=== PATIENT | female | born 1940 | race Caucasian/White ===

== ENCOUNTER 2017-03-14 09:23 | Day surgery (SDC) | payer MEDICARE, MEDICAID ==
[2017-03-05 10:21] VITALS: BMI 30.2
[2017-03-14] MEDS ORDERED: ceFAZolin IV 1 gm in Dextrose 0 GM/0 ML BAG IVPB ONE (11:56)
[2017-03-14] MEDS ORDERED: Midazolam 2 MG/2 ML VIAL ONE (11:58)
[2017-03-14] MEDS ORDERED: Propofol 10 mg/ml Inj (20 ML) ONE (11:59)
[2017-03-14] MEDS ORDERED: Lactated Ringer's 1,000 ML IV ONE (12:00)
[2017-03-14] MEDS: Lidocaine 1% Inj (20ml) ONE ×2 (12:00→12:25)
[2017-03-14] MEDS: Bupivacaine/Epi 0.25%-1:200,000 10 ml PF inj IJ ONE ×2 (12:00→12:25)
[2017-03-14] MEDS ORDERED: ceFAZolin IV 2 gm in Dextrose 1 GM/50 ML BAG IVPB ONE (12:18)
--- NOTE | 2017-03-14 12:54 | PCM.SURG1 ---
Surgeon's Initial Post Op Note - Surgeon's Notes Surgeon: Dr. Astudillo Diesel Truck Technician: Dr. Sosa PGY-2, Dr. Guthrie PGY-1 Type of Anesthesia: IV Sedation, Local Pre-Operative Diagnosis: Portacath, pt finished with chemo Operative Findings: Portacath encased in capsule Post-Operative Diagnosis: Portacath, pt finished with chemo Operation Performed: Portacath removal Specimen/Specimens Removed: Portacath, capsule Estimated Blood Loss: EBL {In ML}: 10 Blood Products Given: N/A Drains Used: No Drains Post-Op Condition: Good Date of Surgery/Procedure: 03/14/17 Time of Surgery/Procedure: 12:54
--- NOTE | 2017-03-14 13:19 | OP ---
PROCEDURE DATE: 03/14/2017 PREOPERATIVE DIAGNOSIS: Rectosigmoid cancer. POSTOPERATIVE DIAGNOSIS: Rectosigmoid cancer. PROCEDURE DONE: Port-A-Cath removal. SURGEON: Devyn Astudillo MD CORDWOOD CUTTER: Amisha Sosa, PGY-2 resident ANESTHESIA: Local plus sedation. ESTIMATED BLOOD LOSS: Around 10 mL. DRAINS: None. PATHOLOGY: The Port-A-Cath with capsule was sent for the pathology. COMPLICATIONS: None. INTRAOPERATIVE FINDINGS: The patient had right IJ Port-A-Cath. OPERATION DONE: 1. Port-A-Cath removal. 2. Capsulectomy. INTRAOPERATIVE STEPS: This is a 76-year-old female who was diagnosed with rectosigmoid CA and after completion of the treatment, the patient needed the Port-A-Cath removed and the patient was consented for the Port-A-Cath removal, brought to the OR, placed supine on the operating table. After inducti on of the sedation, the right upper chest was prepped and draped. Local anesthesia was injected. In cision was made and Port-A-Cath was completely removed and capsule was also removed and it was sent t o the table for the pathology. Hemostasis was achieved. The wound was closed in 2 layers, the subcu taneous with 2-0 Vicryl in multiple layers and skin with 4-0 Monocryl. Dry sterile dressing was appl ied. The patient tolerated the procedure well. Count of instruments and gauze was correct. There w as no apparent complication. Devyn Astudillo MD cc: [id number] TT: 03/14/2017 13:18:55 en
[2017-03-14 16:09] VITALS: BP 148/56; PULSE 68; RESP 18; TEMP 96.1; O2SAT 99
== END 2017-03-14 16:10 | disposition home or self-care (01) ==
LOC: C.SDS 09:23
PROVIDERS: ATTEND Surgery Surgical Critical Care
DX: Z45.2 Encounter for adjustment and management of vascular access device (principal); C20 Malignant neoplasm of rectum
CPT/HCPCS: 36590; 82948; 88300; 88305; 88342; J0690; J1885; J2250; J2704; J3010; J7120

== ENCOUNTER 2017-10-13 08:58 | Emergency (ER) | payer MEDICARE, MEDICAID ==
[2017-10-13 08:59] VITALS: BMI 33.6
--- NOTE | 2017-10-13 09:43 | C.PDOC ---
History Of Present Illness VIA TRANS NEW ONSET ALVAREZ X 4 DAYS. INITIALLY 4 DAYS AGO, RESOLVED X 2 DAYS NOW RECUR TODAY. INITIALLY R SIDE, NOW L SIDE. CONSTANT. +NV NOW RESOLVED. DENIES OTHER ASSOC SX. USES CANE CHRONICALLY DUE TO HO CHRONIC B/L KNEE PAIN. 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) History/Exam Limitations: no limitations Onset/Duration Of Symptoms: Sudden Onset (New onset 4 days ago) Past Medical History Reviewed: Historical Data, Nursing Documentation, Vital Signs Vital Signs: Last Vital Signs Temp 98.4 F 10/13/17 12:23 Pulse 67 10/13/17 11:49 Resp 16 10/13/17 11:49 BP 165/72 H 10/13/17 11:49 Pulse Ox 100 10/13/17 13:16 - Medical History PMH: Colonic Polyps (Cancer), Diabetes, HTN, Hypercholesterolemia, Hypothyroidism, Malignancy (Colon with colostomy on chemo) Surgical History: Appendectomy - [facility] Procedures ENDOSCOPIC BIOPSY OF RECTUM (12/13/13) ESOPHAGOGASTRODUODENOSCOPY [EGD] W/CLOSED BIOPSY (08/04/13) OPEN AND OTHER SIGMOIDECTOMY (04/29/13) Family History: States: No Known Family Hx - Social History Hx Tobacco Use: No Hx Alcohol Use: No Hx Substance Use: No - Immunization History Hx Tetanus Toxoid Vaccination: No Hx Influenza Vaccination: No Hx Pneumococcal Vaccination: No Review Of Systems Except As Marked, All Systems Reviewed And Found Negative. Constitutional: Negative for: Fever Eyes: Negative for: Vision Change Cardiovascular: Negative for: Chest Pain Respiratory: Negative for: Shortness of Breath Neurological: Positive for: Headache Physical Exam - Physical Exam Appears: Non-toxic, In Acute Distress (Mild) Skin: Warm, Dry, No Rash Head: Atraumatic, Normacephalic Eye(s): bilateral: Normal Inspection, PERRL, EOMI, Other (No photophobia) Ear(s): Bilateral: Normal Oral Mucosa: Moist Neck: Normal, Normal ROM, Supple, Other (No meningismus) Cardiovascular: Rhythm Regular, No Murmur Respiratory: Normal Breath Sounds, No Rales, No Rhonchi, No Stridor, No Wheezing Extremity: Normal ROM, No Swelling Neurological/Psych: Oriented x3, Normal Speech Gait: With Assistance (Cane) ED Course And Treatment - Laboratory Results Result Diagrams: 10/13/17 10:02 10/13/17 10:02 ECG: Interpreted By Me, Viewed By Me ECG Rhythm: Sinus Rhythm ECG Interpretation: Normal Rate From EC (BPM) O2 Sat by Pulse Oximetry: 100 (RA) Pulse Ox Interpretation: Normal - Radiology CXR: Interpreted by Me CXR Interpretation: Yes: No Acute Disease - CT Scan/US CT - Head Other Rad Studies (CT/US): Read By Radiologist, Radiology Report Reviewed CT/US Interpretation: PROCEDURE: CT HEAD WITHOUT CONTRAST. HISTORY: Headache HO COLON CANCER. COMPARISON: None available. TECHNIQUE: Axial computed tomography images were obtained through the head/brain without intravenous contrast. Radiation dose: Total exam DLP = 786.53 mGy-cm. This CT exam was performed using one or more of the following dose reduction techniques: Automated exposure control, adjustment of the mA and/or kV according to patient size, and/or use of iterative reconstruction technique. FINDINGS: HEMORRHAGE: No intracranial hemorrhage. BRAIN: No mass effect or edema. Mild scattered white matter hypodensities, which are nonspecific, but often seen with chronic microvascular ischemic disease. Please note that MRI with diffusion imaging is more sensitive in the detection of acute ischemic event. VENTRICLES: No hydrocephalus. CALVARIUM: Unremarkable. PARANASAL SINUSES: Unremarkable as visualized. No significant inflammatory changes. MASTOID AIR CELLS: Unremarkable as visualized. No inflammatory changes. OTHER FINDINGS: None. IMPRESSION: No acute intracranial pathology identified. Please note if clinical concern for intracranial metastases, MRI without and with IV contrast is recommended. Progress - Re-Evaluation Re-evaluation Note: 10/13/17 13:00 d/w dr anna ortiz aware of er findings, unk current chemo drugs. OUTPT FU 10/13/17 13:06 D/W DR FUNG: +?R INFIL. 10/13/17 13:11 FAMILY @ BEDSIDE. PS LAST CHEMO 07/29 "I GET A SHOT AFTERWARDS". POSSIBLE GRANIX? ABX, ADVISED FU PMD. - Data Reviewed Data Reviewed: Lab, Diagnostic imaging, EKG, Old records Medical Decision Making Medical Decision Making: PLAN: * CT - Head * EKG * CBC * BMP * Tylenol PO * Zofran PO * Avelox PO Disposition Counseled Patient/Family Regarding: Studies Performed, Diagnosis, Need For Followup, Rx Given - Disposition Referrals: YOUR,PMD [Other] Disposition: HOME/ ROUTINE Disposition Time: 13:12 Condition: IMPROVED Additional Instructions: TAKE TYLENOL NEEDED FOR HEADACHE NEEDED Prescriptions: Moxifloxacin [Avelox] 400 mg PO DAILY #6 tab Instructions: Acute Headache (ED), Community Acquired Pneumonia (ED) Forms: [employer] (Croatian) Print Language: URDU - Clinical Impression Clinical Impression: Bandemia, Headache, Colorectal cancer, Abnormal chest xray - Scribe Statement The provider has reviewed the documentation as recorded by the Scribe Melony [place] Provider Attestation: All medical record entries made by the Scribe were at my direction and personally dictated by me. I have reviewed the chart and agree that the record accurately reflects my personal performance of the history, physical exam, medical decision making, and the department course for this patient. I have also personally directed, reviewed, and agree with the discharge instructions and disposition.
[2017-10-13 10:10] LABS: BASO % 0.3 % (0.0-2.0); EOS % 0.1 % (0.0-4.0); HEMATOCRIT 36.4 % (34.0-47.0); LYMPH # 0.9 K/uL (1.0-4.3); LYMPH % 7.9 % (20.0-40.0); MEAN CELL VOLUME 89.8 fL (81.0-99.0); MEAN CORPUSCULAR HEMOGLOBIN 29.4 pg (27.0-31.0); MEAN CORPUSCULAR HGB CONC 32.7 g/dL (33.0-37.0); MEAN PLATELET VOLUME 8.1 fL (7.2-11.7); MONO # 0.3 K/uL (0.0-0.8); MONO % 2.3 % (0.0-10.0); PLATELET COUNT 200 K/uL (130-400); RED CELL DISTRIBUTION WIDTH 14.9 % (11.5-14.5)
[2017-10-13 10:11] LABS: WHITE BLOOD COUNT 12.1 K/uL (4.8-10.8)
[2017-10-13 10:31] LABS: CALCIUM 8.4 mg/dl (8.6-10.4)
[2017-10-13 10:39] LABS: NEUTROPHIL 83 % (50-75); TOTAL CELLS COUNTED 100
[2017-10-13 10:45] LABS: POTASSIUM 5.1 mmol/L (3.6-5.2)
--- NOTE | 2017-10-13 10:46 | CT ---
PROCEDURE: CT HEAD WITHOUT CONTRAST. HISTORY: Headache HO COLON CANCER COMPARISON: None available. TECHNIQUE: Axial computed tomography images were obtained through the head/brain without intravenous contrast. Radiation dose: Total exam DLP = 786.53 mGy-cm. This CT exam was performed using one or more of the following dose reduction techniques: Automated exposure control, adjustment of the mA and/or kV according to patient size, and/or use of iterative reconstruction technique. FINDINGS: HEMORRHAGE: No intracranial hemorrhage. BRAIN: No mass effect or edema. Mild scattered white matter hypodensities, which are nonspecific, but often seen with chronic microvascular ischemic disease. Please note that MRI with diffusion imaging is more sensitive in the detection of acute ischemic event. VENTRICLES: No hydrocephalus. CALVARIUM: Unremarkable. PARANASAL SINUSES: Unremarkable as visualized. No significant inflammatory changes. MASTOID AIR CELLS: Unremarkable as visualized. No inflammatory changes. OTHER FINDINGS: None. IMPRESSION: No acute intracranial pathology identified. Please note if clinical concern for intracranial metastases, MRI without and with IV contrast is recommended.
[2017-10-13 10:54] VITALS: RESP 16
[2017-10-13 12:24] LABS: VENOUS BLOOD GAS PCO2 54 mmHg (40-60); VENOUS BLOOD PH 7.31 (7.32-7.43)
[2017-10-13 12:30] LABS: URINE BILIRUBIN NEGATIVE (NEGATIVE); URINE BLOOD 1+ (NEGATIVE); URINE COLOR Straw (YELLOW); URINE GLUCOSE (UA) 2+ mg/dL (Normal); URINE KETONE NEGATIVE (NEGATIVE); URINE LEUKOCYTE ESTERASE 1+ Leu/uL (Negative); URINE PROTEIN NEGATIVE (NEGATIVE); URINE UROBILINOGEN NORMAL mg/dL (0.2-1.0); WBC URINE < 1 /hpf (0-5)
--- NOTE | 2017-10-13 13:05 | RAD ---
HISTORY: ABN WBC RO PNEUMONIA COMPARISON: Chest x-ray performed 03/05/17 TECHNIQUE: Chest PA and lateral FINDINGS: LUNGS: Minimal patchy opacity in the right middle lobe may reflect pneumonia. Please note that chest x-ray has limited sensitivity for the detection of pulmonary masses. PLEURA: No significant pleural effusion identified. No definite pneumothorax . CARDIOVASCULAR: Cardiomegaly. OSSEOUS STRUCTURES: No acute osseous abnormality identified. VISUALIZED UPPER ABDOMEN: Unremarkable. OTHER FINDINGS: None. IMPRESSION: Minimal patchy opacity in the right middle lobe may reflect pneumonia. Findings discussed with Dr. Woodruff on 10/13/17 at 1:02 p.m.
[2017-10-13 13:24] VITALS: BP 165/72; PULSE 67; TEMP 98.4; O2SAT 100
--- NOTE | 2017-10-14 21:56 | CARD ---
APPROVED REPORT EKG Measurement Heart [id number] <Conclusion> Normal sinus rhythm Normal ECG
== END 2017-10-13 13:35 | disposition home or self-care (01) ==
LOC: C.ER 08:58
DX: D72.825 Bandemia (principal); C19 Malignant neoplasm of rectosigmoid junction; R91.8 Other nonspecific abnormal finding of lung field; R51 Headache; E78.00 Pure hypercholesterolemia, unspecified; E11.9 Type 2 diabetes mellitus without complications; E03.9 Hypothyroidism, unspecified; I10 Essential (primary) hypertension; Z93.3 Colostomy status